=== PATIENT | male | born 1975 | race Caucasian/White ===

== ENCOUNTER 2017-10-28 06:52 | Inpatient (IN) | payer OTHER ==
[~2017-10-28] VITALS: Ht 175.3 cm; Wt 68.0 kg
--- NOTE | ~2017-10-28 | HC ---
[facility] [place] [address] CONSULTATION Name: VANESSA TROTTER Room #: 410-P [facility] IN ..#: [id number] Admission: 10/28/17 Attend Phys: Yuriy Han MD Discharge: Date of : 77 Report #: [id number] THIS REPORT FOR: //name// CC: Rui Han DATE OF SERVICE: 10/31/2017 REASON FOR CONSULTATION: Osteomyelitis, right foot. HISTORY OF PRESENT ILLNESS: The patient is a 42-year-old male who noted a blister a few months ago on the right foot. He subsequently was treated with an incision and debridement at [facility]. He was placed on antibiotics. He presented to the [facility] on the date of admission with severe cellulitis and a draining wound with a tunnel to the calcaneus. He was admitted to improve blood flow to the right lower leg. Apparently this was successful. He reports a history of diabetes since age 2, reports his last known hemoglobin A1c, approximately 2 months ago, was 14. REVIEW OF SYSTEMS: NEUROLOGIC: The patient reports normal sensation to his lower extremities. MUSCULOSKELETAL: See HPI. In addition, he also reports a small very superficial abrasion of the anterior aspect of his right ankle. PAST MEDICAL HISTORY: Significant for type 1 diabetes mellitus, hearing loss, cataracts. PAST SURGICAL HISTORY: He has had cataract surgery, ear surgery, sinus surgery, foot surgery in 08/2017. SOCIAL HISTORY: He smokes, drinks alcohol occasionally. He is . MEDICATIONS: The patient's MAR was reviewed, which shows fentanyl, vancomycin, clopidogrel, aspirin, losartan, piperacillin-tazobactam, spironolactone, insulin, vitamin C, nicotine patch, zolpidem, zinc sulfate, ondansetron, metoclopramide, hydrocodone, albuterol and ipratropium. LABORATORY DATA: Laboratory studies done on 10/30/2017 show white blood cell count 5.4, which is improved from 10/28/2017 showing a white blood cell count 13.3. On 10/30/2017, hemoglobin is 8.5, hematocrit 25.2, platelet count . INR on 10/29/2017 of 1. MRSA swab in the nares was negative. PHYSICAL EXAMINATION: GENERAL: The patient is alert and oriented. He interacts appropriately. He is a well-developed, well-nourished male, in no acute distress. His is [address] [place] [address] CONSULTATION Name: VANESSA TROTTER Room #: 410-P [facility] IN [facility].#: [id number] Admission: 10/28/17 Attend Phys: Yuriy Han MD Discharge: Date of : 77 Report #: [id number] present at his bedside and converses well. VITAL SIGNS: Most recent vital signs show a temperature of 36.5, heart rate 102, respiration 18, blood pressure 175/83, pulse oximetry is 95% on room air. EXTREMITIES: Examination of his right lower extremity shows 2+ dorsalis pedis pulse. He has brisk capillary refill. EHL, FHL, dorsiflexion and plantar flexion are intact. He has a 2 cm calcaneal wound. I did not remove all the packing. There is approximately a 5 cm surrounding area of pink coloration, no neetu erythema and they report that this is significantly improved. RADIOLOGY: Lower extremity MRI shows a comminuted fracture with a tongue-type fragment in the calcaneus with findings consistent with osteomyelitis to the calcaneus and cuboid. Plain radiographs including AP and lateral of the calcaneus show the fracture through the calcaneus with some mild bone destruction. IMPRESSION AND PLAN: Right calcaneal-cuboid osteomyelitis with fracture post-interventional radiology procedure to improve blood flow. The patient overall has improved with respect to erythema and pain. I discussed with him, he may be a candidate for debridement. I will have my partner, Dr. Poe, who is business education professor this weekend, see him this weekend and they can determine that. Due to this recent procedure to attempt to improve his blood flow to improve his healing, I feel it would be appropriate to continue wound care and antibiotics to see if he can obtain any healing. The patient is fairly adamant about not wanting an amputation at this point. We did discuss that he may require an amputation at some point due to the difficult nature of this wound healing. Questions were encouraged and answered to the best of my ability. By: [id number] Tona Nassar MD /nt
--- NOTE | ~2017-10-28 | HC ---
[facility] [place] [address] CONSULTATION Name: VANESSA TROTTER Room #: 410-[facility] IN M.R.#: [id number] Admission: 10/28/17 Attend Phys: Yuriy Han MD Discharge: Date of : 77 Report #: [id number] THIS REPORT FOR: //name// CC: Rui Han TYPE OF REPORT: Infectious diseases consultation. REASON FOR CONSULTATION: I was asked to evaluate concerning left heel osteomyelitis. HISTORY OF PRESENT ILLNESS: The patient was a 42-year old with fairly advanced diabetes with peripheral neuropathy and the development of left calcaneus osteomyelitis. He was diagnosed with a heel wound approximately July. Last month, he was hospitalized at [facility] where he underwent surgical debridement of his heel followed by a 6-week course of IV antibiotic therapy. He was unclear as to the specific agent. Unclear of the specific bacterial pathogens. Following completion of his intravenous antibiotic program, he was switched to Augmentin. He has been on Augmentin for about a week. He has been treated by Infectious Disease Service at [facility]. No documented fever, chills or sweats. He returned home from the detention last week and he had been up on his feet more. Presented to the outpatient wound care clinic and Dr. Oden evaluated this morning and hospitalized him for worsening wound. The patient has low grade ongoing pain in the heel. No definite new trauma. REVIEW OF SYSTEMS: Notes history of gastroparesis. No cardiopulmonary issues. He does think he has had peripheral vascular evaluation at [facility]. No nausea, vomiting or diarrhea. No dysuria. ALLERGIES: None known. MEDICATIONS: As noted on his MAR, which were reviewed and includes Tylenol, albuterol, vitamin C, fentanyl, hydrocodone, losartan, Reglan, nicotine transdermal, ondansetron, zinc, Ambien and spironolactone. FAMILY HISTORY: Unchanged from his history and physical and was reviewed. SOCIAL HISTORY: Unchanged from his history and physical and was reviewed. PAST MEDICAL HISTORY: Unchanged from his history and physical and was reviewed. PHYSICAL EXAMINATION: VITAL SIGNS: He was afebrile and hemodynamically stable. GENERAL: He is alert and cooperative. He was hard of hearing. HEENT: Unremarkable. [facility] [address] [place] [address] CONSULTATION Name: VANESSA TROTTER Room #: [facility] IN .R.#: [id number] Admission: 10/28/17 Attend Phys: Yuriy Han MD Discharge: Date of : 77 Report #: [id number] CHEST: Clear. HEART: Regular. ABDOMEN: Soft and nontender. EXTREMITIES: Pulses in the left groin were palpable as well as in the left popliteal region. Could not appreciate dorsalis pedis or posterior tibial pulse in the left leg. He had extensive wound over the heel. Fairly large soft tissue defect identified. Bone appeared to be reasonably soft. There was no exposed bone but evidence of fatty tissue in the wound bed. There was minimal granulation tissue. There were surrounding edema and erythema. Small amount of serous drainage noted. LABORATORY STUDIES: Glucose 312, sodium 133, potassium 4.9, bicarbonate 27, creatinine 1.4 and calcium 10.4. Liver function test normal. Hemoglobin 10.3; WBC 13.3 and platelet count 486,000. RADIOLOGICAL DATA: X-ray of the heel showed evidence of fracture of the calcaneus in association with the large soft tissue wound. IMPRESSION: A 42-year-old diabetic with small vessel peripheral vascular disease and peripheral neuropathy with complicated diabetic heel wound with calcaneus osteomyelitis and fracture. I am doubtful that his foot will be salvageable in this situation with extensive fracture and osteomyelitis. He has already completed a 6-week course of IV antibiotic therapy. Despite this, has had progression of his disease. RECOMMENDATIONS: Recommend obtaining records from [facility] to identify his microbiology and previous workup. We will continue with broad antibiotic coverage, pending the studies. We would reimage his arterial supply to the left leg. He will continue IV antibiotic therapy, wound care and offloading pending further studies. Control blood glucose. <ELECTRONICALLY SIGNED> By: Isael Kent MD 10/29/17 0817 [id number] Isael Kent MD /nt
--- NOTE | ~2017-10-28 | HC ---
[facility] [place] [address] CONSULTATION Name: SERGOVANESSA Mackenzie Room #: 410-P [facility] IN ..#: [id number] Admission: 10/28/17 Attend Phys: Yuriy Han MD Discharge: Date of : 77 Report #: [id number] THIS REPORT FOR: //name// CC: Rui Han DATE OF SERVICE: 10/30/2017 CHIEF COMPLAINT: Left heel osteomyelitis. HISTORY OF PRESENT ILLNESS: This is a 42-year-old white male with longstanding history of insulin-dependent diabetes, which is poorly controlled, who was admitted yesterday for acute osteomyelitis and cellulitis of his left heel. The patient had resection of osteomyelitic bone approximately 6 weeks ago with IV antibiotics at [facility]. The patient, however, was then sent to skilled facility for continued IV antibiotics. The patient was discharged from the skilled facility recently and was told that his heel "looked good." The patient was given the name of our clinic to follow up, was seen by Dr. Oden. He felt that the wound was infected, had cellulitis and was admitted to the hospital. There was a concern also that the wound tunneled into the calcaneal bone itself. The patient was admitted for Infectious Disease consult, evaluation with MRI and orthopedic consultation. The patient states he has essentially minimal pain in that area secondary to neuropathy. The patient denies any associated wounds at this time. The patient states he has been poorly controlled for his diabetes for several years. PAST MEDICAL HISTORY: Significant for insulin-dependent diabetes for multiple years. Denies other significant medical history except for hearing loss in his left ear. CURRENT MEDICATIONS: List include IV antibiotics as well as other medicines, which I have reviewed. DRUG ALLERGIES: None. SOCIAL HISTORY: The patient still smokes 1 pack of cigarettes daily, drinks alcohol socially. FAMILY HISTORY: Not pertinent to current medical condition. REVIEW OF SYSTEMS: CONSTITUTIONAL: The patient denies fevers or chills. NEUROLOGIC: The patient complains of overall generalized weakness, but no isolated weakness in arms or legs. EYES: No complaints. [facility] [address] [facility] [address] CONSULTATION Name: VANESSA TROTTER Room #: [address] [place] [address] [place] M.R.#: [id number] Admission: 10/28/17 Attend Phys: Yuriy Han MD Discharge: Date of : 77 Report #: [id number] ENT: The patient complains of hearing loss in his left ear, which is chronic. The patient wears hearing aid. CARDIOVASCULAR: The patient denies chest pain, palpitations, peripheral edema. RESPIRATORY: The patient denies shortness of breath, cough or wheezes. GASTROINTESTINAL: The patient denies nausea, vomiting, abdominal pain. GENITOURINARY: The patient denies urgency or frequency. MUSCULOSKELETAL: No complaints. SKIN: There is an open wound on his left calcaneal region. PHYSICAL EXAMINATION: VITAL SIGNS: Temperature 36.6, pulse 86, respiration 18, BP 160/88. GENERAL: This is an alert and oriented x 3, pleasant, thin white male who appears chronically ill. HEENT: Normocephalic, atraumatic. Mucous membranes are dry. Pupils are round. The patient has a hearing aid in left ear. NECK: Supple, nontender. LUNGS: Slight diminished breath sounds heard throughout. HEART: Regular. ABDOMEN: Soft, nontender. EXTREMITIES: The patient moves all extremities. Evaluation of left lower extremity reveals 1+ dorsalis pedis, posterior tibial pulses. Evaluation of left heel reveals an open wound which is nearly 100% slough. It is full thickness down to the calcaneal bone. There is tunneling into the calcaneal bone, approximately 3.5 cm. There is seropurulent drainage noted with mild odor. There is palpable calcaneal bone. Rest of the foot was without obvious open wounds. Right lower extremity is intact with 1+ dorsalis pedis and posterior tibial pulse. Right heel, foot and toes, all without ulcerations. NEUROLOGIC: Cranial nerves 2-12 grossly intact. Motor and sensory grossly intact. LABORATORY VALUES: Lower extremity MRI shows osteomyelitis in the calcaneus and cuboid, which also appears to be a calcaneal fracture. Unclear whether this is acute or chronic. White count is 5.4, hemoglobin is 8.5, BUN 13, creatinine 1.2, albumin 3.1. WOUND CARE COURSE: I spoke at length with the patient and patient's and stated at this point in time, the patient has obvious osteomyelitis persist in his calcaneus and they are extending into the cuboid with fracture. The patient is adamantly against amputation at this time. The patient would like to see if there is possibly any type of bony debridement that can occur. The patient is now back from percutaneous intervention by Dr. Rehman which involved angioplasty of the posterior tibial trunk as well as the tibioperoneal trunk, peroneal artery and proximal anterior tibial artery. At this time, the patient wants to see with increased blood flow and IV antibiotics and possibly this wound can start to heal on its own. I had a long talk with the patient and his and stated that my concern is the extent of the osteomyelitis, most likely [facility] [address] [place] [address] CONSULTATION Name: VANESSA TROTTER Room #: 410-P ADM IN .R.#: [id number] Admission: 10/28/17 Attend Phys: Yuriy Han MD Discharge: Date of : 77 Report #: [id number] is going to require below the knee amputation. If not even and above, the amputation given his significant arterial disease. At this time, they are not willing to proceed with any type of amputation and wants to try to see if there is any type of bony debridement. Orthopedics has been consulted and we will await their input. However, if no bony debridement is going to be entertained, then we need to talk about getting the patient to possibly an LTAC where he can continue with IV antibiotics, aggressive physical and occupational therapy for strengthening as well as continued wound care. IMPRESSION: 1. Osteomyelitis, left calcaneus, status post bony debridement 6 weeks ago with residual infected bone and calcaneal fracture. 2. Insulin-dependent diabetes -- poorly controlled. 3. Peripheral arterial disease, now status post percutaneous intervention. 4. Protein-calorie malnutrition, moderate, with albumin of 3.1. 5. Generalized debility. PLAN: 1. At this time, we will start Dakin's quarter strength wet to dry dressings to the left heel twice daily. Cover this with an ABD and Kerlix. Continue IV antibiotics per Infectious Disease. We will await the Orthopedics input for any possibility of bony debridement. The patient once again is not agreeable to BKA at this time. 2. We will maximize the patient's oral protein supplementation for healing. 3. We will optimize the patient's blood glucose for healing. 4. We will consider LTAC level of care at discharge. Continue all other current medications. We will continue to follow the patient now. By: [id number] Lee Dominguez MD /nt
[2017-10-28 11:18] VITALS: BP 121/75
[2017-10-28] MEDS ORDERED: COZAAR 50 MG TA50 M2 PO (13:20)
[2017-10-28] MEDS ORDERED: ONDANSETRON HCL4 M2 PO (13:20)
[2017-10-28] MEDS ORDERED: DUONEB 2.5-0.5 M3 ML INH (13:21)
[2017-10-28] MEDS ORDERED: REGLAN 10 MG TA10 MG PO (13:21)
[2017-10-28] MEDS ORDERED: JUVEN PACKET1 EAC1 PO (13:23)
[2017-10-28] MEDS ORDERED: AUGMENTIN 875-1 EACH PO (13:23)
[2017-10-28] MEDS ORDERED: ALDACTONE25 MG PO (13:23)
[2017-10-28] MEDS ORDERED: VITAMINC500 PO (13:24)
[2017-10-28] MEDS ORDERED: ZINC SULFATE220 MG PO (13:24)
[2017-10-28] MEDS ORDERED: NORCO 5-325 TA1 EACH PO ×2 (13:35→13:37)
[2017-10-28 14:55] LABS: HEMATOCRIT 32.1 % (42.0-52.0); HEMOGLOBIN 10.3 gm/dL (14.0-18.0); MCH 25.4 pg (26.0-34.0); MCV 79.4 fL (80.0-100.0); RBC 4.04 mil/uL (4.50-6.00); RDW 16.9 % (10.5-14.5); WBC 13.3 thou/uL (4.0-11.0)
[2017-10-28 15:07] LABS: CALCIUM 10.4 mg/dL (8.5-10.1); CREATININE 1.4 mg/dL (0.7-1.3); POTASSIUM 4.9 mmol/L (3.5-5.1)
[2017-10-28 15:14] LABS: ALBUMIN 3.1 g/dL (3.4-5.0); TOTAL BILIRUBIN 0.4 mg/dL (<0.1-1.0); TOTAL PROTEIN 7.5 g/dL (6.4-8.2)
[2017-10-28 15:40] LABS: FOLIC ACID 18.1 ng/mL (8.6-58.9); TSH 0.456 uIU/mL (0.358-3.740)
[2017-10-28 20:00] VITALS: BP 119/74
[2017-10-29 04:00] VITALS: BP 126/66
[2017-10-29 04:46] LABS: HEMATOCRIT 25.1 % (42.0-52.0); HEMOGLOBIN 8.4 gm/dL (14.0-18.0); MCH 26.1 pg (26.0-34.0); MCHC 33.3 g/dL (28.0-37.0); MCV 78.4 fL (80.0-100.0); RBC 3.2 mil/uL (4.50-6.00); RDW 16.7 % (10.5-14.5); WBC 6.7 thou/uL (4.0-11.0)
[2017-10-29 04:51] LABS: CALCIUM 9.3 mg/dL (8.5-10.1); CREATININE 1.2 mg/dL (0.7-1.3); POTASSIUM 4.4 mmol/L (3.5-5.1)
[2017-10-29 08:36] VITALS: BP 143/70
[2017-10-29 10:22] VITALS: BP 143/70
[2017-10-29 11:20] LABS: PROTIME 10.2 Seconds (9.3-11.4)
[2017-10-29 17:16] VITALS: BP 153/83
[2017-10-29 20:39] VITALS: BP 138/71
[2017-10-30 04:44] VITALS: BP 144/66
[2017-10-30 06:11] LABS: HEMATOCRIT 25.2 % (42.0-52.0); HEMOGLOBIN 8.5 gm/dL (14.0-18.0); MCH 26.4 pg (26.0-34.0); MCHC 33.7 g/dL (28.0-37.0); MCV 78.5 fL (80.0-100.0); RBC 3.21 mil/uL (4.50-6.00); RDW 16.5 % (10.5-14.5); WBC 5.4 thou/uL (4.0-11.0)
[2017-10-30 06:16] LABS: CALCIUM 8.9 mg/dL (8.5-10.1); CREATININE 1.2 mg/dL (0.7-1.3)
[2017-10-30 09:14] VITALS: BP 146/78
[2017-10-30 17:13] VITALS: BP 153/76
[2017-10-30 20:34] VITALS: BP 160/88
[2017-10-31 04:46] VITALS: BP 175/83
[2017-10-31 09:15] VITALS: BP 144/65
[2017-10-31 09:41] VITALS: BP 144/65
[2017-10-31 17:00] VITALS: BP 170/71
[2017-10-31 19:29] VITALS: BP 132/63
[2017-11-01 04:06] VITALS: BP 141/74
[2017-11-01 08:00] VITALS: BP 144/76
[2017-11-01 15:45] VITALS: BP 149/73
[2017-11-01 19:50] VITALS: BP 147/74
[2017-11-02 04:10] VITALS: BP 141/68
[2017-11-02 07:30] VITALS: BP 149/81
[2017-11-02 16:11] VITALS: BP 125/65
[2017-11-02 20:30] VITALS: BP 165/82
[2017-11-03 04:30] VITALS: BP 140/69
[2017-11-03 07:30] VITALS: BP 136/69
[2017-11-03 17:00] VITALS: BP 96/60
[2017-11-03 21:02] VITALS: BP 131/92
[2017-11-04 05:00] VITALS: BP 155/78
[2017-11-04 05:31] LABS: HEMATOCRIT 24.8 % (42.0-52.0); HEMOGLOBIN 8.1 gm/dL (14.0-18.0); MCH 25.9 pg (26.0-34.0); MCHC 32.7 g/dL (28.0-37.0); MCV 79.1 fL (80.0-100.0); RBC 3.14 mil/uL (4.50-6.00); RDW 17.1 % (10.5-14.5)
[2017-11-04 05:46] LABS: CALCIUM 9.1 mg/dL (8.5-10.1); CREATININE 1.3 mg/dL (0.7-1.3); MAGNESIUM 1.8 mg/dL (1.8-2.4); POTASSIUM 3.9 mmol/L (3.5-5.1)
[2017-11-04 07:30] VITALS: BP 161/84
[2017-11-04] MEDS ORDERED: ASA5UEC PO (12:20)
[2017-11-04] MEDS ORDERED: MIRALAX17 GM PO (12:20)
[2017-11-04] MEDS ORDERED: PLAVIX 75 MG TA75 M1 PO (12:20)
[2017-11-04] MEDS ORDERED: NICOTINE TRANSD21 M1 TRANSDERM (12:20)
[2017-11-04] MEDS ORDERED: NOVOLOG100 UNIT/1 SUBQ (12:20)
[2017-11-04] MEDS ORDERED: VANCO 1 GR1 GM/150 M IV (12:20)
[2017-11-04] MEDS ORDERED: HEPARIN SO5000 UNIT/ SUBQ (12:20)
[2017-11-04] MEDS ORDERED: PROBIOTIC1 EAC1 PO (12:20)
[2017-11-04] MEDS ORDERED: LEVEMIR SUBQ (12:20)
[2017-11-04] MEDS ORDERED: ZOSYN 3.3753.375 GM IV (12:20)
[2017-11-04 15:17] VITALS: BP 127/53
== END 2017-11-04 17:19 | disposition short-term general hospital (02) | DRG 629 ==
LOC: HYPER 06:52 → 4N 10:59 → HYPER 15:17 → 4E 10-31 16:44
PROVIDERS: Hospitalist; Internal Medicine; Nuclear Medicine Nuclear Cardiology
PROC: 04CU3ZZ Extirpation of Matter from Left Peroneal Artery, Percutaneous Approach (ICD-10-PCS; principal; 2017-10-28)
PROC: 04CS3ZZ Extirpation of Matter from Left Posterior Tibial Artery, Percutaneous Approach (ICD-10-PCS; principal; 2017-10-28)
PROC: 04CQ3ZZ Extirpation of Matter from Left Anterior Tibial Artery, Percutaneous Approach (ICD-10-PCS; principal; 2017-10-28)
PROC: B4181ZZ Fluoroscopy of Bilateral Renal Arteries using Low Osmolar Contrast (ICD-10-PCS; principal; 2017-10-28)
PROC: B41D1ZZ Fluoroscopy of Aorta and Bilateral Lower Extremity Arteries using Low Osmolar Contrast (ICD-10-PCS; principal; 2017-10-28)
PROC: 047S34Z Dilation of Left Posterior Tibial Artery with Drug-eluting Intraluminal Device, Percutaneous Approach (ICD-10-PCS; principal; 2017-10-28)
PROC: 047Q34Z Dilation of Left Anterior Tibial Artery with Drug-eluting Intraluminal Device, Percutaneous Approach (ICD-10-PCS; principal; 2017-10-28)
PROC: 047U34Z Dilation of Left Peroneal Artery with Drug-eluting Intraluminal Device, Percutaneous Approach (ICD-10-PCS; principal; 2017-10-28)
PROC: 05HY33Z Insertion of Infusion Device into Upper Vein, Percutaneous Approach (ICD-10-PCS; 2017-11-04)
DX: E10.69 Type 1 diabetes mellitus with other specified complication (principal); L03.116 Cellulitis of left lower limb; E44.0 Moderate protein-calorie malnutrition; M86.172 Other acute osteomyelitis, left ankle and foot; L97.429 Non-pressure chronic ulcer of left heel and midfoot with unspecified severity; K31.84 Gastroparesis; E78.5 Hyperlipidemia, unspecified; K21.9 Gastro-esophageal reflux disease without esophagitis; E11.649 Type 2 diabetes mellitus with hypoglycemia without coma; E10.621 Type 1 diabetes mellitus with foot ulcer; L97.529 Non-pressure chronic ulcer of other part of left foot with unspecified severity; S92.002A Unspecified fracture of left calcaneus, initial encounter for closed fracture; X58.XXXA Exposure to other specified factors, initial encounter; E10.42 Type 1 diabetes mellitus with diabetic polyneuropathy; E10.43 Type 1 diabetes mellitus with diabetic autonomic (poly)neuropathy; F17.210 Nicotine dependence, cigarettes, uncomplicated; E10.65 Type 1 diabetes mellitus with hyperglycemia; I10 Essential (primary) hypertension; B95.62 Methicillin resistant Staphylococcus aureus infection as the cause of diseases classified elsewhere; I70.244 Atherosclerosis of native arteries of left leg with ulceration of heel and midfoot; Z79.899 Other long term (current) drug therapy; Z68.22 Body mass index [BMI] 22.0-22.9, adult; Z98.42 Cataract extraction status, left eye; Z98.41 Cataract extraction status, right eye; Z71.6 Tobacco abuse counseling; Y93.89 Activity, other specified; Y92.89 Other specified places as the place of occurrence of the external cause; Y99.8 Other external cause status
CPT/HCPCS: 10783; 10790; 27000

== ENCOUNTER 2017-12-05 06:11 | Inpatient (IN) | payer OTHER ==
[~2017-12-05] VITALS: Ht 175.3 cm; Wt 68.0 kg
--- NOTE | ~2017-12-05 | HC ---
[facility] [place] [address] CONSULTATION Name: VANESSA TROTTER Room #: 455-P ADM IN M.R.#: [id number] Admission: 12/05/17 Attend Phys: Ellis Poe MD Discharge: Date of : 77 Report #: [id number] THIS REPORT FOR: //name// CC: FAM unknown Kristi Sheets Ellis Poe DATE OF SERVICE: 12/06/2017 ATTENDING PHYSICIAN: Dr. Poe. REASON FOR CONSULTATION: Antibiotic management. HISTORY OF PRESENT ILLNESS: A 42-year-old white man with chronic osteomyelitis, left heel, undergoes left BKA. The patient relates he had been fighting the infection for a long time and elected to proceed with amputation. PAST MEDICAL HISTORY: Diabetes mellitus for some 40 years. Retinopathy. Cataract surgery. Gastroparesis. SOCIAL HISTORY: See H and P, old records. FAMILY HISTORY: See H and P, old records. REVIEW OF SYSTEMS: See H and P, previous consultation. DRUG ALLERGIES: None listed. MEDICATIONS: The patient is on treatment with p.r.n. ondansetron, p.r.n. dextrose and glucagon. Insulin lispro per sliding scale, insulin glargine 15 units at bedtime, intravenous fluids, p.r.n. pain medications, no antibiotics. PHYSICAL EXAMINATION: GENERAL: Chronically ill-appearing man, not toxic looking. VITAL SIGNS: Afebrile, pulse 87, respirations 16, BP 130/72. Height 5 feet 9 inches, weight 150 pounds. HEENMT: Status post cataract surgery. Mouth: Dry mucous membrane. NECK: Supple. LUNGS: Clear. HEART: S1, S2. No gallop. ABDOMEN: With fat hypertrophy, possibly from injection of insulin in a single spot. No masses or megaly. GENITALIA AND RECTAL: Deferred. EXTREMITIES: Reveal left BKA dressing with RAHEL in place. Dressings not removed. NEUROLOGIC: Grossly within normal limits. [address] [address] CONSULTATION Name: VANESSA TROTTER Room #: [address] [place] [address] [place] [facility].#: [id number] Admission: 12/05/17 Attend Phys: Ellis Poe MD Discharge: Date of : 77 Report #: [id number] LABORATORY DATA: Sodium 128, then repeated today at 135, BUN 40, creatinine 2.2, glucose 479. Hemoglobin 7.6 g/dL. Culture of the foot done on 10/28 revealed MRSA. ASSESSMENT: 1. Status post left below knee amputation. 2. History of left calcaneus osteomyelitis. 3. Diabetes mellitus. 4. Chronic kidney disease. 5. Anemia of chronic disease. 6. Diabetic retinopathy. SUGGESTIONS: Recommend continued local wound care. No systemic antibiotics. Dr. Poe thank you for requesting my suggestions. <ELECTRONICALLY SIGNED> By: Milad Shah MD 12/07/17822 2 0855 Milad Shah MD /vest[employer]
--- NOTE | ~2017-12-05 | HC ---
[facility] [place] [address] CONSULTATION Name: VNAESSA TROTTER Mackenzie Room #: 455-P [facility] IN ..#: [id number] Admission: 12/05/17 Attend Phys: Ellis Poe MD Discharge: 12/09/17 Date of : 77 Report #: [id number] THIS REPORT FOR: //name// CC: FAM unknown Kristi Sheets Ellis Poe DATE OF SERVICE: 12/08/2017 HISTORY OF PRESENT ILLNESS: This is a 42-year-old male who has a history of insulin-dependent diabetes mellitus, left foot cellulitis, underwent prolonged IV antibiotics at [facility]. He was discharged home and that being readmitted with continued problems with that left leg and has noted calcaneal osteomyelitis. He has now undergone a left below knee amputation on 12/05/2017. He has had some issues with pain control. He is moving slowly from a functional perspective. He has the prior history of insulin-dependent diabetes mellitus and clinically appears to have some concurrent at least mild peripheral neuropathy. We are seeing him in rehabilitation medicine consultation. PAST MEDICAL HISTORY: Includes insulin-dependent diabetes mellitus and hypertension. He had some postoperative anemia. He had pain management with pain medication control during the postoperative period. There is also history of asthma, kidney stone. PAST SURGICAL HISTORY: He has had prior debridement of the left foot wound August 2017, bilateral myringotomy, bilateral cataracts with lens implants. ALLERGIES: No known drug allergies. MEDICATIONS: Please see the full medication listing. This medication list includes vitamins, herbals, and supplements. HABITS: Tobacco cigarettes 1-2 packs per day. SOCIAL HISTORY: Lives with his , house, and premorbid cane ambulator. There are 5-6 steps in. is currently looking for a job. REVIEW OF SYSTEMS: Did not offer any current complaints of chest pain, shortness of breath or abdominal discomfort. PHYSICAL EXAMINATION: GENERAL: A 42-year-old white male in no obvious distress. He does have some pain complaints and has been medicated with Percocet and morphine p.r.n. He is alert, cooperative. HEAD, EYES, EARS, NOSE, AND THROAT: Facies appeared symmetric. EXTREMITIES: Functional range of motion of both upper extremities. Appears to [facility] [address] [place] [address] CONSULTATION Name: VANESSA TROTTER Room #: 455-P [facility] IN M.R.#: [id number] Admission: 12/05/17 Attend Phys: Ellis Poe MD Discharge: 12/09/17 Date of : 77 Report #: [id number] have some hand and intrinsic muscle atrophy. Would grade his intrinsic strength is 4 to 4-/5 proximally is more of a grade 4+ in the lower extremities, right lower extremity, no focal calf swelling, functional range of motion, strength is grade 4- to 4. Proprioception is reasonably intact at the right large toe. He has a left below knee amputation, which is dressed. ASSESSMENT: A 42-year-old white male with the following problems: 1. Left below-knee amputation. 2. Insulin-dependent diabetes mellitus. 3. Likely concurrent peripheral neuropathy with some hand intrinsic atrophy. 4. Pain management issues postoperatively. 5. Functional mobility and activities of daily living deficits. 6. History of peripheral vascular disease. 7. History of asthma. 8. Prior kidney stone. 9. History of tobacco abuse. PLAN: Occupational therapy orders are added. We would certainly agree with a short acute in-hospital inpatient rehabilitation stay would be helpful with him. He needs to improve his functional independence with mobility and ADLs, getting around with a walker/wheelchair so he can return back to the home setting and eventually be fitted with the prosthesis as things further heel. The goal from an acute rehab perspective would be for him to become independent with mobility and ADLs at the walker/wheelchair level to return back to the home setting. He could then be fitted for a prosthesis as an outpatient, has things further heel. Insurance precertification issues will be checked in too. <ELECTRONICALLY SIGNED> By: Wilson Sandoval MD 12/12/17 1314 [id number] Wilson Sandoval MD /[facility]
--- NOTE | ~2017-12-05 | PATH ---
[facility] [address] [place] [address] PATHOLOGY RPT PROCEDURE Name: SERGOCHRIS C Room #: 455-P [facility] IN M.R.#: [id number] Admission: 12/05/17 Date of : 77 Discharge: 12/09/17 Report #: [id number] Path Case #: [id number] [facility] Accession Number: [id number] . 01 Material submitted: . LEFT BELOW KNEE AMPUTATION . 01 Clinical history: . Left leg infection . 02 Diagnosis: "Left below knee amputation", amputation: - Skin and subcutaneous tissue with acute and chronic inflammation, necrosis, granulation tissue, fibrosis and pseudoepitheliomatous hyperplasia; surgical margins without significant inflammation. - Decalcified bone with fibrosis, chronic inflammation and extensive bony remodeling. - Blood vessels with calcific atherosclerosis. . (CLW:jose maria; 12/10/2017) QLM/12/10/2017 . 02 Electronically signed: . Dea Pardo MD, Pathologist NPI- [id number] . 01 Gross description: . Received fresh in a red biohazard bag labeled "Chris Trotter, left below knee amputation" and consists of a left below the knee amputation measuring 25.4 cm heel to toe and 19.9 cm heel to skin resection margin. Protruding from the margin is the fibula 4.9 cm in length and 1.2 cm in diameter and tibia 1.8 cm in length and 2.5 seem in diameter. All 5 toes are present with yellow-santana, thickened nails. There is an ulcerated lesion on the heel measuring 5.3 x 2.7 cm. The remainder of the skin is pink evident santana without any additional gross lesions. The skin/soft tissue and bone margins grossly appear viable. Sectioning the arteries reveal patent lumens. Represent sections are submitted as follows: A1: Skin and soft tissue margin A2: Ulcerated skin A3: Proximal bone marrow A4: Bone deep to ulceration A5: Arteries (SDY; 12/09/2017) SYU/SYU . 02 CPT . [id number] [address] [address] PATHOLOGY RPT PROCEDURE Name: CHRIS TROTTER Room #: 455-P DIS IN M.R.#: [id number] Admission: 12/05/17 Date of : 77 Discharge: 12/09/17 Report #: [id number] Path Case #: [id number] Performed at: [id number] [facility] [address], [place], [place] [id number] MD Kobe Turner MD Phone: [phone] Performed at: [address] [id number] MD Esther Oakley MD Phone: [phone]
--- NOTE | ~2017-12-05 | O ---
[facility] [place] [address] OPERATIVE REPORT Name: VANESSA TROTTER Room #: 455-P [facility] IN M.R.#: [id number] Admission: 12/05/17 Attend Phys: Ellis Poe MD Discharge: Date of : 77 Report #: [id number] THIS REPORT FOR: //name// CC: FAM unknown Kristi Sheets Ellis Poe DATE OF SERVICE: 12/05/2017 PREOPERATIVE DIAGNOSIS: Left calcaneus osteomyelitis. POSTOPERATIVE DIAGNOSIS: Left calcaneus osteomyelitis. PROCEDURE: Left rvfcz-cya-dqtl amputation. SURGEON: Ellis Poe M.D. ANESTHESIA: General. ESTIMATED BLOOD LOSS: Minimal. DRAINS: None. TOURNIQUET TIME: 45 minutes. DESCRIPTION OF PROCEDURE: The patient was brought to the operating room where he was placed under general anesthesia. Once under adequate general anesthesia, his left lower extremity was prepped and draped in a sterile manner. The extremity was elevated and a tourniquet placed 300 mmHg. A fishmouth-type incision was made about the mid shaft of the tibia. This was dissected directly sharply down to the bone anteriorly and then cautery was used to complete the muscular portion of the amputation. The posterior tibial vessels were identified and tagged and subsequently incised distal to the proposed amputation site. An oscillating saw was used then to transect the tibia, which was then beveled anteriorly as well with the oscillating saw after exposure of the fibula. This was then transected as well in an oblique fashion. The amputation was then complete. The wound was irrigated copiously. The posterior tibial vessels were ligated separately with a 0 silk suture. The posterior tibial nerve was incised proximal to the amputation site sharply with a 10 blade. The wound was irrigated copiously and closed over a Hemovac drain with #1 Vicryl in the deep fascia, 2-0 Vicryl in the subcutaneous tissues and pebbles were used for the skin. The wounds were dressed with Xeroform, 4 x 4s, and a sterile soft compressive dressing was placed. Tourniquet was let down at approximately 1 [facility] [address] [place] [address] OPERATIVE REPORT Name: VANESSA TROTTER Room #: 455-P [facility] IN [facility]#: [id number] Admission: 12/05/17 Attend Phys: Ellis Poe MD Discharge: Date of : 77 Report #: [id number] hour. There were no complications from the procedure. The patient tolerated the procedure well and went to the recovery room without incident. <ELECTRONICALLY SIGNED> By: Ellis Poe MD 12/08/17 0832 1616 1650 Ellis Poe MD /nt
--- NOTE | ~2017-12-05 | EKG ---
[address] [address] ELECTROCARDIOGRAM REPORT Name: VANESSA TROTTER Room #: 150-6 ADM IN M.R.#: [id number] Admission: 12/05/17 Attend Phys: Ellis Poe MD Discharge: Date of : 77 Report #: [id number] THIS REPORT FOR: //name// 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: STEPHON : 1975 Requested By: Ellis Poe Order Number: [id number] MD: Guanakito Shah Measurements Intervals Pixley Rate: 118 P: 43 WV: 142 QRS: -41 QRSD: 98 T: 67 QT: 329 QTc: 462 Interpretive Statements Sinus tachycardia Probable left atrial enlargement Left anterior fascicular block Anteroseptal infarct, old Borderline ST depression, lateral leads No previous ECG available for comparison Electronically Signed On 12-05-2017 15:32:24 CDT by Guanakito Shah [email or web address] <ELECTRONICALLY SIGNED> By: Guanakito Shah MD 12/05/17 1532 1328 1328 Guanakito Shah MD /EPI
[~2017-12-05 06:11] MED LIST: ALDACTONE25 MG PO; ASA5UEC PO; ASPIR-TRIN325 MG PO; AUGMENTIN 875-1 EACH PO; COZAAR 50 MG TA50 M2 PO; DUONEB 2.5-0.5 M3 ML INH; HEPARIN SO5000 UNIT/ SUBQ; JUVEN PACKET1 EAC1 PO; LANTUS100 UNIT/M SUBQ; LEVEMIR SUBQ; MIRALAX17 GM PO; NICOTINE TRANSD21 M1 TRANSDERM; NORCO 5-325 TA1 EACH PO; NOVOLOG100 UNIT/1 SUBQ; ONDANSETRON HCL4 M2 PO; PLAVIX 75 MG TA75 M1 PO; PROBIOTIC1 EAC1 PO; REGLAN 10 MG TA10 MG PO; VANCO 1 GR1 GM/150 M IV; VITAMINC500 PO; ZINC SULFATE220 MG PO; ZOSYN 3.3753.375 GM IV
[2017-12-05 13:45] VITALS: BP 147/94
[2017-12-05 13:48] LABS: CALCIUM 10.2 mg/dL (8.5-10.1); CREATININE 2.2 mg/dL (0.7-1.3); POTASSIUM 4.7 mmol/L (3.5-5.1)
[2017-12-05 18:00] VITALS: BP 134/55
[2017-12-05 18:30] VITALS: BP 144/57
[2017-12-05 19:00] VITALS: BP 134/60
[2017-12-05 20:00] VITALS: BP 136/60
[2017-12-06 03:05] VITALS: BP 130/72
[2017-12-06 04:22] LABS: HEMATOCRIT 22.4 % (42.0-52.0); HEMOGLOBIN 7.6 gm/dL (14.0-18.0)
[2017-12-06 04:33] LABS: POTASSIUM 4.1 mmol/L (3.5-5.1)
[2017-12-06 09:11] VITALS: BP 129/68
[2017-12-06 16:08] VITALS: BP 135/66
[2017-12-06 19:17] VITALS: BP 141/62
[2017-12-06 19:18] VITALS: BP 141/62
[2017-12-07 03:45] VITALS: BP 151/77
[2017-12-07 05:03] LABS: HEMOGLOBIN 6.9 gm/dL (14.0-18.0)
[2017-12-07 05:06] LABS: HEMATOCRIT 20.7 % (42.0-52.0); MCH 26.8 pg (26.0-34.0); MCHC 33.4 g/dL (28.0-37.0); MCV 80.3 fL (80.0-100.0); RBC 2.57 mil/uL (4.50-6.00); RDW 17.1 % (10.5-14.5); WBC 11.1 thou/uL (4.0-11.0)
[2017-12-07 05:22] LABS: ALBUMIN 2.3 g/dL (3.4-5.0); CALCIUM 9.2 mg/dL (8.5-10.1); POTASSIUM 4.5 mmol/L (3.5-5.1); TOTAL BILIRUBIN 0.3 mg/dL (<0.1-1.0); TOTAL PROTEIN 6.6 g/dL (6.4-8.2)
[2017-12-07 05:23] LABS: CREATININE 1.2 mg/dL (0.7-1.3)
[2017-12-07 05:24] LABS: % SATURATION 5 % (20-39); IRON 7 ug/dL (65-175); TIBC 152 ug/dL (250-450)
[2017-12-07 08:00] VITALS: BP 126/65
[2017-12-07 13:05] VITALS: BP 124/71; BP 149/73
[2017-12-07 15:35] VITALS: BP 149/73
[2017-12-07 19:07] VITALS: BP 137/67
[2017-12-07 19:35] LABS: HEMATOCRIT 23.9 % (42.0-52.0); HEMOGLOBIN 8.2 gm/dL (14.0-18.0)
[2017-12-08 04:00] VITALS: BP 160/79
[2017-12-08 05:53] LABS: HEMATOCRIT 25.5 % (42.0-52.0); HEMOGLOBIN 8.3 gm/dL (14.0-18.0); MCH 26.6 pg (26.0-34.0); MCHC 32.8 g/dL (28.0-37.0); MCV 81.2 fL (80.0-100.0); RBC 3.13 mil/uL (4.50-6.00); RDW 15.8 % (10.5-14.5); WBC 9.3 thou/uL (4.0-11.0)
[2017-12-08 06:12] LABS: ALBUMIN 2.2 g/dL (3.4-5.0); CREATININE 1.2 mg/dL (0.7-1.3); POTASSIUM 4.5 mmol/L (3.5-5.1); TOTAL BILIRUBIN 0.3 mg/dL (<0.1-1.0); TOTAL PROTEIN 6.9 g/dL (6.4-8.2)
[2017-12-08 09:20] VITALS: BP 144/66
[2017-12-08 17:23] VITALS: BP 141/73
[2017-12-08 19:16] VITALS: BP 134/70
[2017-12-09 04:00] VITALS: BP 104/81
[2017-12-09 06:01] LABS: CALCIUM 9.4 mg/dL (8.5-10.1)
[2017-12-09 06:08] LABS: ABSOLUTE NEUTROPHILS 4.1 thou/uL (1.4-8.2); EOSINOPHILS 11.8 % (0.0-3.0); LYMPHOCYTES 20.4 % (24.0-44.0)
[2017-12-09 06:27] LABS: BASOPHILS 0.1 % (0.0-2.0); MCHC 33.4 g/dL (28.0-37.0); MONOCYTES 9.5 % (1.0-8.0); POLYS 58.2 % (36.0-66.0); RBC 3.34 mil/uL (4.50-6.00); RDW 16.5 % (10.5-14.5)
[2017-12-09 06:31] LABS: PLATELET COUNT 530 thou/uL (150-400)
[2017-12-09 07:50] VITALS: BP 160/90
== END 2017-12-09 16:30 | DRG 853 ==
LOC: TBA 06:11 → 4W 06:11 → PRE 09:15 → 4W 17:42
PROVIDERS: Hospitalist; Orthopaedic Surgery Foot and Ankle Surgery
PROC: 0Y6J0Z2 Detachment at Left Lower Leg, Mid, Open Approach (ICD-10-PCS; principal; 2017-12-05)
DX: A41.9 Sepsis, unspecified organism (principal); E43 Unspecified severe protein-calorie malnutrition; M86.9 Osteomyelitis, unspecified; L03.116 Cellulitis of left lower limb; M86.8X6 Other osteomyelitis, lower leg; E11.69 Type 2 diabetes mellitus with other specified complication; E11.319 Type 2 diabetes mellitus with unspecified diabetic retinopathy without macular edema; E11.51 Type 2 diabetes mellitus with diabetic peripheral angiopathy without gangrene; E11.22 Type 2 diabetes mellitus with diabetic chronic kidney disease; D63.8 Anemia in other chronic diseases classified elsewhere; Z96.1 Presence of intraocular lens; J45.909 Unspecified asthma, uncomplicated; Z87.891 Personal history of nicotine dependence; Z87.442 Personal history of urinary calculi; Z98.41 Cataract extraction status, right eye; Z79.4 Long term (current) use of insulin; Z98.42 Cataract extraction status, left eye; Z79.82 Long term (current) use of aspirin; Z79.1 Long term (current) use of non-steroidal anti-inflammatories (NSAID); Z79.899 Other long term (current) drug therapy; N18.9 Chronic kidney disease, unspecified
CPT/HCPCS: 10047; 50010; 50101; 50386; 51412; 53000; 56524; 56525; 57091; 62110; 62900; 70005

== ENCOUNTER 2017-12-09 14:32 | Inpatient (IN) | payer OTHER ==
[~2017-12-09] VITALS: Ht 175.3 cm; Wt 64.9 kg
--- NOTE | ~2017-12-09 | HC ---
[facility] [place] [address] CONSULTATION Name: VANESSA TROTTER Room #: 511-P [facility] IN ..#: [id number] Admission: 12/09/17 Attend Phys: Wilson Sandoval MD Discharge: 12/19/17 Date of : 77 Report #: [id number] THIS REPORT FOR: //name// CC: Wilson Sandoval Kristi Sheets DATE OF SERVICE: 12/16/2017 ATTENDING PHYSICIAN: Wilson Sandoval MD TRANSPORTATION AGENT: Shayne Andres, PhD CLINICAL PRESENTATION: The patient is a 42-year-old male admitted to the rehabilitation unit at [facility] for a comprehensive inpatient rehabilitation program to improve functional mobility, activities of daily living and self-care and mental status secondary to deficits from a left lvvvr-lcw-krtu amputation and multiple medical issues. The patient carries an assessment that includes left yalyn-wrd-fxvr amputation, insulin-dependent diabetes mellitus, concurrent peripheral neuropathy with hand intrinsic atrophy, pain management issues, functional mobility and activities of daily living deficits, history of peripheral vascular disease, asthma, kidney stone, and a history of tobacco abuse. A complete description of his medical condition and history along with medications can be found in his medical record. Neuropsychological consultation was requested to provide assistance in the assessment of cognitive and emotional status and to provide recommendations and services. Prior to this most recent medical event, he was living independently with the assistance of his . He has no children. He is from a family with 1 sister and 3 brothers. 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 The patient completed a GED. TECHNIQUES UTILIZED: Clinical interview, review of medical records, staff consultation and behavioral observation, mini mental status exam 2 standard version. EXAMINATION FINDINGS: The patient was alert and cooperative with the assessment. There is no evidence of aphasia. His thoughts are logical and goal oriented. There is no evidence of thought disorder. He describes difficulty with attention and concentration. He does not report problems with sleep, appetite, depression or anxiety. He states his memory is within normal limits. The patient has a history of a 2-pack a day cigarette use. He does not report a history of alcohol abuse. His performance on the MMSE 2 brief version is within normal limits with a raw score of 14 of 16. He was 4 of 5 for orientation to time, 5/5 for [address] [address] CONSULTATION Name: VANESSA TROTTER Room #: 511-P [facility] IN [facility].#: [id number] Admission: 12/09/17 Attend Phys: Wilson Sandoval MD Discharge: 12/19/17 Date of : 77 Report #: [id number] and 2/3 for immediate recall of 3 items after a brief time delay and distraction. Registration was within normal limits and 3/3. His performance on the MMSE 2 standard version was indicated impairment with attention and concentration. He was 1 of 5 for serial 7's. DIAGNOSTIC IMPRESSION: Mild neurocognitive disorder, unspecified, without behavior disorder. RECOMMENDATIONS: The patient will likely benefit from increased assistance in the management of his health care needs. His should participate in the management of medication. Tobacco use is a problem and needs to be discontinued. Continued phantom limb pain, may benefit from assistance through behavioral pain management strategies. Emphasis on remaining strengths and and abilities will assist his overall adjustment. Thank you very much for allowing me to provide the consultation on this patient. <ELECTRONICALLY SIGNED> By: Shayne Andres, PhD 12/27/17 1431 1028 1417 Shayne Andres, PhD /nt
--- NOTE | ~2017-12-09 | PLAN ---
[facility] [place] [address] REHAB UNIT PLAN OF CARE Name: VANESSA TROTTER Room #: 511-P ADM IN M.R.#: [id number] Admission: 12/09/17 Attend Phys: Wilson Sandoval MD Discharge: Date of : 77 Report #: [id number] THIS REPORT FOR: //name// CC: Wilson Sheets DATE OF SERVICE: 12/12/2017 PROGRESS NOTE/OVERALL PLAN OF CARE SUBJECTIVE: The patient is seen back today in followup. He has no complaints. Last recorded temperature 98.4, pulse 86, respirations 20, blood pressure 170/92. No focal calf swelling. Below knee amputation with the stump investment recovery technician in place. Transfers are contact guard, gait is contact guard 15 feet front-wheeled walker with hopping. Lower body dressing is supervision. ASSESSMENT: 1. Left calcaneal osteomyelitis, status post left below knee amputation. 2. Poorly controlled type 2 diabetes mellitus. 3. Gait instability with functional mobility deficits. 4. History of peripheral vascular disease. 5. History of asthma. 6. History of kidney stones. 7. Tobacco abuse. PLAN: The overall plan of care is based on the preadmission screen, post-admission physician evaluation and information garnered from therapy assessments. 1. Estimated length of stay is probably at least 7 to 10 days or longer if needed. 2. Medical prognosis is reasonably good. 3. Anticipated interventions include the interdisciplinary acute inpatient rehabilitation program. 4. Anticipated functional outcomes would be for the patient to become modified independent with transfers, mobility and ADLs at the walker level. Goal would be to discharge him home at the walker level/wheelchair with fitting with the prosthesis as an outpatient. 5. Discharge destination would be back home with . 6. Expected therapy by discipline includes PT/OT 1-1/2 hours per day each 5 days a week throughout the duration of the acute inpatient rehabilitation stay. ADDENDUM [facility] [address] [place] [address] REHAB UNIT PLAN OF CARE Name: VANESSA TROTTER Room #: 511-P [facility] IN [facility]#: [id number] Admission: 12/09/17 Attend Phys: Wilson Sandoval MD Discharge: Date of : 77 Report #: [id number] The patient did miss some therapy yesterday secondary to a schedule conflict. <ELECTRONICALLY SIGNED> By: Wilson Sandoval MD 12/12/17 1314 0858 0916 Wilson Sandoval MD /nt
--- NOTE | ~2017-12-09 | PLAN ---
[facility] [place] [address] REHAB UNIT PLAN OF CARE Name: VANESSA TROTTER Mackenzie Room #: 511-P ADM IN M.R.#: [id number] Admission: 12/09/17 Attend Phys: Wilson Sandoval MD Discharge: Date of : 77 Report #: [id number] THIS REPORT FOR: //name// CC: Wilson Sheets DATE OF SERVICE: 12/12/2017 ADDENDUM The patient did miss some therapy yesterday secondary to a schedule conflict. <ELECTRONICALLY SIGNED> By: Wilson Sandoval MD 12/12/17 1314 0900 0914 Wilson Sandoval MD /nt
--- NOTE | ~2017-12-09 | H ---
[facility] [place] [address] HISTORY AND PHYSICAL Name: VANESSA TROTTER Room #: 511-P ADM IN .R.#: [id number] Admission: 12/09/17 Attend Phys: Wilson Sandoval MD Discharge: Date of : 77 Report #: [id number] THIS REPORT FOR: //name// CC: Wilson Sheets DATE OF SERVICE: 12/10/2017 HISTORY AND PHYSICAL/POSTADMISSION PHYSICIAN EVALUATION HISTORY OF PRESENT ILLNESS: The patient is a 42-year-old white male originally admitted to [facility] on 12/05/2017. He has a history of insulin-dependent diabetes mellitus, left foot cellulitis and had underwent prolonged IV antibiotics at [facility]. He was discharged home, but ended up being readmitted with continued problems with his left leg and was noted to have calcaneal osteomyelitis. He has now undergone a left below knee amputation on 12/05/2017. He has had some issues with pain control. Infectious Disease was involved with continuation of antibiotics. He has significant functional mobility and ADL deficits and has now been admitted for acute in-hospital inpatient rehabilitation. PAST MEDICAL HISTORY: Includes insulin-dependent diabetes mellitus and hypertension. He has had some postoperative anemia. He has had pain management with pain management control during the postoperative period. There also has a history of asthma and kidney stone. PAST SURGICAL HISTORY: Includes prior debridement of the left foot wound in 08/2017, bilateral myringotomy and bilateral cataracts with lens implants. ALLERGIES: No known drug allergies. MEDICATIONS: Please see the full medication listing. This medication list includes vitamins, herbals and supplements. HABITS: Tobacco, cigarettes 1-2 packs per day. SOCIAL HISTORY: Lives with his , house, premorbid cane ambulator, 5-6 steps in. is currently looking for a job. REVIEW OF SYSTEMS: No specific complaints of chest pain, shortness of breath, abdominal discomfort. He does have some pain complaints and has been receiving hydrocodone p.r.n. PHYSICAL EXAMINATION: GENERAL: This is a 42-year-old white male rather small build, in no distress. VITAL SIGNS: Last recorded temperature is 98, pulse 80, respirations 20 and [facility] [address] [place] [address] HISTORY AND PHYSICAL Name: VANESSA TROTTER Room #: 511-P [facility] IN [facility]#: [id number] Admission: 12/09/17 Attend Phys: Wilson Sandoval MD Discharge: Date of : 77 Report #: [id number] blood pressure 136/74. The patient was sleepy this morning, but easily arouses. HEENT: Facies appeared to be symmetric. CHEST: Sounded clear to auscultation. CARDIAC: Regular rate and rhythm. ABDOMEN: Bowel sounds positive, nontender. GENITOURINARY AND RECTAL: Deferred. EXTREMITIES: He has functional range of motion of both upper extremities. Appears to have some hand intrinsic muscle atrophy. Would grade his intrinsic strength is 4 to 4-/5. Proximally, he is more of a grade 4+/5. In the lower extremities, no focal calf swelling, functional range of motion. Strength is grade 4-/5. No evidence of skin breakdown of the right lower extremity. He has a left below knee amputation with dressing in place. Appears to be achieving reasonable extension. Functionally, he has been transferring with contact guard and has started doing some short distance hopping. In occupational therapy, lower body dressing is min assist. ASSESSMENT: This is a 42-year-old white male with the following problem list: 1. Left below-knee amputation. 2. Insulin-dependent diabetes mellitus. 3. Likely concurrent peripheral neuropathy with some hand intrinsic atrophy. 4. Pain management issues, which are continuing to be managed. 5. Functional mobility and activities of daily living deficits. 6. History of peripheral vascular disease. 7. History of asthma. 8. Prior kidney stone. 9. History of tobacco abuse. PLAN: The patient is admitted for acute in-hospital inpatient rehabilitation. From a postadmission physician evaluation perspective, there are no relevant changes since the preadmission screening. Please see the above review of prior and current medical and functional conditions and comorbidities. Please see the patient's previous and current functional status. As far as risk of complications, the patient has multiple medical comorbidities as noted above. Initial plan of care involves the interdisciplinary acute inpatient rehabilitation program with the goal of maximizing with the patient's functional independence, so that he can hopefully return back to his prior living situation. Measurable functional goals would be for him to become modified independent with transfers, mobility, ADLs at the walker level, so that he can return back to the home setting. Prognosis is reasonably good with estimated length of stay probably at least 7-10 days and likely longer if needed. [address] [address] HISTORY AND PHYSICAL Name: VANESSA TROTTER Room #: 511-P [facility] IN M.R.#: [id number] Admission: 12/09/17 Attend Phys: Wilson Sandoval MD Discharge: Date of : 77 Report #: [id number] Potential barriers would include his multiple medical comorbidities and decreased functional status. <ELECTRONICALLY SIGNED> By: Wilson Sandoval MD 12/12/17 1314 0747 0808 Wilson Sandoval MD /nt
[2017-12-09 16:45] VITALS: BP 114/75
[2017-12-09 20:04] VITALS: BP 136/74
[2017-12-10 05:31] LABS: HEMATOCRIT 28.1 % (42.0-52.0); HEMOGLOBIN 9.3 gm/dL (14.0-18.0); MCH 26.9 pg (26.0-34.0); MCV 81.5 fL (80.0-100.0); RBC 3.45 mil/uL (4.50-6.00); RDW 16.3 % (10.5-14.5); WBC 6.7 thou/uL (4.0-11.0)
[2017-12-10 05:38] LABS: CALCIUM 9.4 mg/dL (8.5-10.1); CREATININE 1.2 mg/dL (0.7-1.3); POTASSIUM 4.5 mmol/L (3.5-5.1)
[2017-12-10 07:30] VITALS: BP 158/89
[2017-12-10 22:21] VITALS: BP 150/80
[2017-12-11 09:40] VITALS: BP 139/70
[2017-12-11 20:32] VITALS: BP 170/92
[2017-12-12 02:09] LABS: GLYCOHEMOGLOBIN (HGB A1C) 7.6 % (4.8-5.6)
[2017-12-12 08:50] VITALS: BP 144/74
[2017-12-12 19:56] VITALS: BP 168/93
[2017-12-13 08:37] VITALS: BP 160/85
[2017-12-13 19:40] VITALS: BP 118/68
[2017-12-14 07:45] VITALS: BP 144/75
[2017-12-14 19:37] VITALS: BP 162/90
[2017-12-15 06:00] LABS: CALCIUM 9.5 mg/dL (8.5-10.1); CREATININE 1.2 mg/dL (0.7-1.3); MAGNESIUM 1.9 mg/dL (1.8-2.4)
[2017-12-15 06:17] LABS: ABSOLUTE NEUTROPHILS 3.1 thou/uL (1.4-8.2); BASOPHILS 0.5 % (0.0-2.0); EOSINOPHILS 19.9 % (0.0-3.0); HEMATOCRIT 28.1 % (42.0-52.0); HEMOGLOBIN 9.4 gm/dL (14.0-18.0); LYMPHOCYTES 28.4 % (24.0-44.0); MCH 27.2 pg (26.0-34.0); MCHC 33.6 g/dL (28.0-37.0); MONOCYTES 8.4 % (1.0-8.0); POLYS 42.8 % (36.0-66.0); RBC 3.47 mil/uL (4.50-6.00); RDW 16.5 % (10.5-14.5); WBC 7.3 thou/uL (4.0-11.0)
[2017-12-15 08:44] LABS: PLATELET COUNT 910 thou/uL (150-400)
[2017-12-15 09:30] VITALS: BP 143/81
[2017-12-15 19:25] VITALS: BP 134/78
[2017-12-16 07:30] VITALS: BP 109/67
[2017-12-16 19:40] VITALS: BP 116/69
[2017-12-17 07:30] VITALS: BP 121/61
[2017-12-17 13:13] VITALS: BP 172/85
[2017-12-17 19:32] VITALS: BP 149/75
[2017-12-18 07:30] VITALS: BP 148/83
[2017-12-18 20:24] VITALS: BP 134/70
[2017-12-19 06:24] LABS: ABSOLUTE NEUTROPHILS 3.8 thou/uL (1.4-8.2); BASOPHILS 0.9 % (0.0-2.0); EOSINOPHILS 13.7 % (0.0-3.0); HEMATOCRIT 31.4 % (42.0-52.0); HEMOGLOBIN 10.2 gm/dL (14.0-18.0); LYMPHOCYTES 27.2 % (24.0-44.0); MCH 26.7 pg (26.0-34.0); MCHC 32.6 g/dL (28.0-37.0); MONOCYTES 6.5 % (1.0-8.0); PLATELET COUNT 839 thou/uL (150-400); POLYS 51.7 % (36.0-66.0); RBC 3.83 mil/uL (4.50-6.00); WBC 7.3 thou/uL (4.0-11.0)
[2017-12-19 06:33] LABS: CALCIUM 9.9 mg/dL (8.5-10.1); CREATININE 1.5 mg/dL (0.7-1.3); MAGNESIUM 1.8 mg/dL (1.8-2.4); POTASSIUM 4.9 mmol/L (3.5-5.1)
[2017-12-19] MEDS ORDERED: PLAVIX 75 MG TA75 M1 PO (09:16)
[2017-12-19] MEDS ORDERED: NEURONTIN 300M300 M2 PO (09:16)
[2017-12-19] MEDS ORDERED: ASPIR 8181 M1 PO (09:16)
[2017-12-19] MEDS ORDERED: COLACE100 MG PO (09:16)
[2017-12-19] MEDS ORDERED: ALDACTONE50 MG PO (09:16)
[2017-12-19] MEDS ORDERED: MIRALAX17 GM PO (09:16)
[2017-12-19] MEDS ORDERED: NOVOLOG100 UNIT/1 SUBQ (09:16)
[2017-12-19 10:30] VITALS: BP 134/70
[2017-12-19 12:51] VITALS: BP 134/70
[2017-12-19 13:41] VITALS: BP 134/70
[2017-12-19 14:27] VITALS: BP 134/70
== END 2017-12-19 14:45 | disposition home health service (06) | DRG 637 ==
PROVIDERS: Nurse Practitioner; Nurse Practitioner Family; Physical Medicine & Rehabilitation
DX: E11.69 Type 2 diabetes mellitus with other specified complication (principal); A41.9 Sepsis, unspecified organism; E43 Unspecified severe protein-calorie malnutrition; L03.116 Cellulitis of left lower limb; D62 Acute posthemorrhagic anemia; M86.8X7 Other osteomyelitis, ankle and foot; I10 Essential (primary) hypertension; J45.909 Unspecified asthma, uncomplicated; Z96.1 Presence of intraocular lens; E11.51 Type 2 diabetes mellitus with diabetic peripheral angiopathy without gangrene; R26.9 Unspecified abnormalities of gait and mobility; E11.42 Type 2 diabetes mellitus with diabetic polyneuropathy; E11.65 Type 2 diabetes mellitus with hyperglycemia; G31.84 Mild cognitive impairment of uncertain or unknown etiology; D50.9 Iron deficiency anemia, unspecified; I82.890 Acute embolism and thrombosis of other specified veins; Z98.41 Cataract extraction status, right eye; Z79.4 Long term (current) use of insulin; Z89.512 Acquired absence of left leg below knee; Z87.442 Personal history of urinary calculi; Z98.42 Cataract extraction status, left eye; Z87.891 Personal history of nicotine dependence; Z68.21 Body mass index [BMI] 21.0-21.9, adult
CPT/HCPCS: 10112